=== PATIENT | male | born 1970 | race Two or more races ===

== ENCOUNTER 2024-03-04 06:05 | Emergency (ER) | payer BC, MEDICAID, SELFPAY ==
--- NOTE | 2024-03-04 06:08 | EKG_ITS ---
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
[2024-03-04 06:17] VITALS: BP 176/107; PULSE 85; RESP 22; TEMP 36.8; O2SAT 95
--- NOTE | 2024-03-04 06:20 | XR_ITS ---
Examination: Ribs, right with PA chest, 5 views Technique: Chest PA, RIBS AP, RPO, LPO, AP coned lower ribs 5 views Exam date and time: March 04, 2024 0629 hrs. Indications: Injury to the right chest one week ago with right rib pain Findings: Normal heart size Linear scarring at the left lung base No pneumothorax Suspicious for fracture right ninth rib far anteriorly Impression: No pneumothorax pulmonary contusion or hemothorax Suspicious for nondisplaced fracture right ninth rib anteriorly, clinical correlation advised
--- NOTE | 2024-03-04 06:21 | PD.EDRME ---
Rapid Medical Screening Exam RME Arrival date/time: 03/04/24 06:05 this is a 53y old male with c/o 3 day hx of SOB at night. 2 week hx of fall at work. Chief Complaint: Shortness of Breath/Dyspnea Time Seen by Provider: 03/04/24 06:09 Vital signs: Vital Signs Temperature 98.2 F 03/04/24 06:17 Pulse Rate 85 03/04/24 06:17 Respiratory Rate 22 H 03/04/24 06:17 Blood Pressure 176/107 H 03/04/24 06:17 Pulse Oximetry (%) 95 03/04/24 06:17 Oxygen Delivery Method Room Air 03/04/24 06:17
[2024-03-04 07:10] LABS: Basophils % (Auto) 0 % (0-2.5); Eosinophils # (Auto) 0.4 Thou/mm3 (0.0-0.5); Eosinophils % (Auto) 3 % (0-10); Hematocrit 44.7 % (41.0-53.0); Hemoglobin 15.3 g/dL (13.5-16.0); Immature Granulocytes % (Auto) 1 % (0-0); Immature Granulocytes Auto 0.08 Thou/mm3 (0.00-0.00); Lymphocytes # (Auto) 2.5 Thou/mm3 (1.0-4.8); Lymphocytes % (Auto) 23 % (10-50); Mean Corpuscular HGB Conc 34.2 g/dl (31.0-37.0); Mean Corpuscular Hemoglobin 30.5 pg (25.0-35.0); Mean Corpuscular Volume 89 fL (80-100); Monocytes # (Auto) 0.9 Thou/mm3 (0.0-0.8); Monocytes % (Auto) 8 % (0-12); Neutrophils # (Auto) 7.1 Thou/mm3 (1.8-7.7); Neutrophils % (Auto) 65 % (37-80); Nucleated Red Blood Cell % 0 /100 WBC (0); Platelet Count 292 Thou/mm3 (140-440); Red Blood Count 5.01 Miln/mm3 (4.50-5.90); White Blood Count 10.9 Thou/mm3 (3.8-10.6)
[2024-03-04 07:17] VITALS: BP 176/107; PULSE 85
[2024-03-04 07:17] LABS: B-Type Natriuretic Peptide < 20 pg/mL (0-100)
[2024-03-04] MEDS: LOSARTAN POTASSIUM 25 MG TABLET 50 MG PO (07:17)
[2024-03-04 07:19] LABS: Partial Thromboplastin Time 27.6 Seconds (22.0-36.0); Prothrombin Time 10.9 Seconds (9.0-12.2)
[2024-03-04 07:20] LABS: Alanine Aminotransferase 67 U/L (10-49); Albumin, Serum 4.5 gm/dL (3.5-5.0); Albumin/Globulin Ratio 1.7 (1.2-2.2); Alkaline Phosphatase 101 U/L (46-116); Anion Gap 9 (7-16); Aspartate Amino Transferase 34 U/L (0-34); BUN/Creatinine Ratio 19 Ratio (12-20); Bilirubin,Total 0.7 mg/dL (0.3-1.2); Blood Urea Nitrogen 23 mg/dL (9-23); Calcium 9.6 mg/dL (8.3-10.6); Calcium (Corrected) 9.6 mg/dL (8.5-10.1); Chloride 103 mMol/L (98-107); Creatinine (Component) 1.2 mg/dL (0.6-1.3); Globulin 2.6 gm/dL (2.3-3.5); Glucose 147 mg/dL (74-106); Lipase 40 U/L (12-53); Osmolality,Calculated 287 (275-295); Potassium 3.6 mMol/L (3.4-5.1); Sodium 141 mMol/L (136-145); Total Protein 7.1 gm/dL (5.7-8.2); Troponin I 0.025 ng/mL (0.0-0.045); eGFR > 60 See Note
[2024-03-04 07:57] LABS: D-Dimer 1840 ng/mL (<600)
--- NOTE | 2024-03-04 08:28 | PD.EDSOB ---
ED SOB =RME/HPI General Chief Complaint: Shortness of Breath/Dyspnea Stated Complaint: DIFF BREATHING Time Seen by Provider: 03/04/24 06:09 Arrival date/time: 03/04/24 06:05 RME / HPI RME / HPI Narrative: 03/04/24 06:05 this is a 53y old male with c/o 3 day hx of SOB at night. 2 week hx of fall at work. DR CRUZ MAIN ED EVALUATION Patient is a 53 year old male presenting to the ED complaining of a cough x1 week and rib pain x2 weeks following a fall. Patient states he has also been having increased difficulty breathing, it is worse at night. States his PCP recommended a sleep study however his insurance did not cover it so he didn't go. Denies chest pain. Denies fevers, chills, nausea,vomiting, diarrhea, constipation, urinary symptoms. History includes diabetes, hypertension, high cholesterol Related Data Home Medications ?Medication ?Instructions ?Recorded ?Confirmed metformin 500 mg tablet 500 mg PO BID 02/10/23 05/02/23 amitriptyline 50 mg tablet 100 mg PO QDAY PRN Sleep 02/14/23 05/02/23 atorvastatin 20 mg tablet 20 mg PO QPM 02/14/23 05/02/23 glipizide 5 mg tablet 5 mg PO QDAY 02/14/23 05/02/23 losartan 50 mg tablet 50 mg PO QDAY 02/14/23 05/02/23 Previous Rx's ?Medication ?Instructions ?Recorded ciprofloxacin HCl 0.3 % eye drops See Rx Instructions ophthalmic 11/13/23 (eye) .COMPLEX #10 mL Allergies Allergy/AdvReac Type Severity Reaction Status Date / Time No Known Allergies Allergy Verified 03/04/24 06:08 Review of Systems Review of Systems Narrative Review of Systems: Gen: No fever, no chills, no weight loss EYES: No discharge, no visual changes, no pain HEENT: No ear pain, no congestion, no sore throat PULM: +shortness of breath, cough, no congestion CV: No chest pain, no dyspnea on exertion, no palpitations GI: No nausea, no vomiting, no diarrhea, no pain, no constipation : No frequency, no urgency, no dysuria Musc/skel: No joint pain, no back pain Skin: No rash Psyc: No hallucinations, no depression Heme/Lymph: No easy bleeding or bruising tendencies Neuro: No weakness, no headache ED Exam Narrative Physical exam: GEN. APPEARANCE: The patient is alert awake oriented X-3 in minimal distress, lying down comfortably, does not look ill/toxic. Patient has good eye contact. Patient is cooperative. VITALS: All vitals were reviewed and the pulse ox is 95% on room air which is normal according to my interpretation. HEENT: Normocephalic, atraumatic. Pupils are equal and reactive. Oral mucosa is moist. Patent Nares NECK: Supple, nontender, no thyromegaly, no meningismus, no JVD, no step offs CHEST: reproducable pain on the right mid rib. Symmetrical, and with equal expansion , no crepitus. CARDIOVASCULAR: Heart regular rhythm no murmur or gallop rub or extra beats. LUNGS: Clear to auscultation bilaterally with symmetrical chest rise. No laboring tachypnea or wheezing. No intercostal subcostal retraction. No rales and no rhonchi. ABDOMEN: Soft, flat, nontender to palpation, no guarding or rebound tenderness. There are no abnormal masses palpated. Active and normal bowel sounds. EXTREMITIES: Nontender. No edema. No cyanosis. Patient is able to move all 4 extremities well, with full ROM and good CSM. SKIN: Warm and dry, no jaundice or rashes noted. MUSCULOSKELETAL: No lubar or midline bony tenderness. There is no CVA tenderness. No paraspinal muscle spasm or tenderness. NEURO: Patient is LEE x 4, Cranial nerves II through XII grossly intact. There is no focal neurologic deficits noted. GCS is 15, PNS and PATENT EXAMINER appear grossly intact. PSYCHIATRIC: Patient is in normal mood and affect, cooperative, no SI or HI or hallucinations. Course Quality Measures none Orders Category Date Time Status Electrical Drafter STAT Care 03/04/24 06:20 Completed Continuous Pulse Oximetry ONCE Care 03/04/24 06:20 Completed EKG (ED ONLY) *Do not use* NOW Care 03/04/24 06:08 Completed Insert IV NOW Care 03/04/24 08:05 Completed Insert IV STAT Care 03/04/24 06:20 Completed EKG (ED Only) Stat Exams 03/04/24 06:08 Draft XR ribs RT min 3V w CXR1V Stat Exams 03/04/24 06:20 Completed B-Type Natriuretic Peptide Stat Lab 03/04/24 06:51 Completed CBC Stat Lab 03/04/24 06:51 Completed Comprehensive Metabolic Panel Stat Lab 03/04/24 06:51 Completed D-Dimer Stat Lab 03/04/24 06:51 Completed Lipase Stat Lab 03/04/24 06:51 Completed Magnesium Stat Lab 03/04/24 06:51 Completed Partial Thromboplastin Time Stat Lab 03/04/24 06:51 Completed Prothrombin Time with INR Stat Lab 03/04/24 06:51 Completed Troponin I Stat Lab 03/04/24 06:51 Completed Losartan [Cozaar] Med 03/04/24 06:53 Discontinued 50 mg PO X1 ONE Oxygen Delivery NOW RT 03/04/24 06:20 Completed Vital Signs Vital signs: Vital Signs Temperature 98.2 F 03/04/24 06:17 Pulse Rate 85 03/04/24 06:17 Respiratory Rate 22 H 03/04/24 06:17 Blood Pressure 176/107 H 03/04/24 06:17 Pulse Oximetry (%) 95 03/04/24 06:17 Oxygen Delivery Method Room Air 03/04/24 06:17 Shortness of Breath / Dyspnea MDM Narrative MDM Narrative:: Mr. Hagan has a history of chronic shortness of breath, nighttime dyspnea, which his primary care doctor is trying to refer him to a sleep study who presents with worsening of his nighttime dyspnea after having a fall onto his right chest about a week ago. Clinically he does appear to have significant rib tenderness on the right and x-ray suggestive of a fracture on rib 9. There were no significant pulmonary insults. Symptoms are consistent with additional splinting due to the pain exacerbating his chronic issues. Laboratory testing was sent via the RME process which shows no acute findings significant for a normal BNP and troponin. I do not feel this is a component of CHF. I did encourage him to discuss with his primary care doctor about the status of the sleep study. At this point he is delayed in presentation from his fall and beyond the window of any major complications from the rib fracture. He is resting here comfortably and [id number] pain control would be appropriate. Patient data External records reviewed:: [facility] previous records Clinical information provided by:: patient Social determinants that could affect healthcare access:: none Patient has the following chronic illnesses:: DM, HTN How is presenting disease/condition affected by chronic disease/condition?: uneffected by Evaluation data The following diagnostics were reviewed and interpreted by me:: lab results and radiology exam(s) Lab and/or radiology exams considered but not ordered:: none Interpretation Summary: Chest Xray interpreted by me: no acute cardiomegaly, discoid attalectusus lower left lung Ordering Physician: Stephanie Rodgers Date of Service: 03/04/24 Procedure(s): XR ribs RT min 3V w CXR1V Accession Number(s): [id number] cc: Christian Proctor MD; Wilbert Mckeon MD; Stephanie Rodgers~ Examination: Ribs, right with PA chest, 5 views Technique: Chest PA, RIBS AP, RPO, LPO, AP coned lower ribs 5 views Exam date and time: March 04, 2024 0629 hrs. Indications: Injury to the right chest one week ago with right rib pain Findings: Normal heart size Linear scarring at the left lung base No pneumothorax Suspicious for fracture right ninth rib far anteriorly Impression: No pneumothorax pulmonary contusion or hemothorax Suspicious for nondisplaced fracture right ninth rib anteriorly, clinical correlation advised Dictated By: Wilbert Mckeon MD Signed By: <Electronically signed by Wilbert Mckeon MD in OV> 03/04/24 0705 Medications / Prescriptions Medications or Prescriptions considered but not ordered:: none Medication administrations:: Medication Administration History Discontinued Medications Losartan Potassium (Losartan Potassium 25 Mg Tablet) 50 mg PO X1 ONE Stop: 03/04/24 06:54 Last Admin: 03/04/24 07:17 Dose: 50 mg Documented By: AA see above Consultations Consultation(s) initiated? (list below): No Diagnosis Shortness of Breath Differential Diagnosis: other (rib fracture, pneumothorax, atelectasis pneumonia) Most likely diagnosis given after review of the tests above:: fracture of rib Admission Indicated Admission indicated?: not indicated Admission Request Was there a request for admission?: No Disposition Plan Disposition Plan: Discharge Discharge Attestation Discharge Attestation: The patient and all family members were given an opportunity to ask questions and understood the discharge instructions. Discharge instructions specifically effects, indications for sooner follow up or return to the emergency department, and the expected course of current diagnosis. Patient condition: Stable Discharge Plan Plan Patient Disposition: HOME (Self Care) Prescriptions/Referrals Prescriptions/Med Rec: No Action metformin 500 mg tablet 500 mg PO BID losartan 50 mg Tablet 50 mg PO QDAY atorvastatin 20 mg Tablet 20 mg PO QPM amitriptyline 50 mg Tablet 100 mg PO QDAY PRN (Reason: Sleep) glipizide 5 mg Tablet 5 mg PO QDAY ciprofloxacin HCl 0.3 % drops See Rx Instructions .ROUTE .COMPLEX Qty: 10 0RF Rx Instructions: put 1-2 drps in affected eye(s) every 2hr up to 8 times/day x2days; then 4 times/day x5days Referrals: Christian Proctor MD [Primary Care Provider] - In 1 week Problem List Clinical Impression: Fracture of rib Patient/Caregiver Discharge Instructions Education Materials: ED Rib Fracture Additional Instructions: Vasyl un seguimiento con burleson m?dico de atenci?n primaria en 2 o 3 d?as para volver a controlarlo. Considere arvind seguimiento a burleson posible estudio del liz?o. Puede regresar al departamento de emergencias antes si los s?ntomas empeoran o si surge alg?n problema nuevo o preocupante. Print Language: Bulgarian Stand Alone Forms: Diana Award Info., Patient Portal Info Letter
[2024-03-04 08:33] VITALS: BP 180/106; PULSE 75; RESP 16; TEMP 36.8; O2SAT 97
== END 2024-03-04 08:50 | disposition home or self-care (01) ==
PROVIDERS: Nurse Practitioner Primary Care; Emergency Provider Emergency Medicine; PCP Family Medicine
DX: S22.31XA Fracture of one rib, right side, initial encounter for closed fracture (principal); R94.31 Abnormal electrocardiogram [ECG] [EKG]; I10 Essential (primary) hypertension; W19.XXXA Unspecified fall, initial encounter; Y99.0 Civilian activity done for income or pay
CPT/HCPCS: 36415; 71101; 80053; 83690; 83735; 83880; 84484; 85025; 85379; 85610; 85730; 93005; 99285; A9270